=== PATIENT | female | born 1950 | race Caucasian/White ===

== ENCOUNTER → 2017-10-24 | Outpatient (CLI) | payer MEDICARE, OTHER ==
[~2017-10-24] MED LIST: ESTRACE CREAM; FENOFIBRATE145 MG PO; FOLIC ACID1 MG PO; LEVOTHYROXIN PO; LOSARTAN PO; METFORMIN HCL500 M2 PO; METOPROLOL PO; ORENCIA IV; SIMVASTATIN PO; TRAMADOL PO; VITAMIN D PO; [UNRECOGNIZED DRUG - OTHER] PO; [UNRECOGNIZED DRUG - REMARK] PO
--- NOTE | 2017-10-24 16:11 | Diagnostic Imaging Report ---
PROCEDURE: Frontal and lateral views of the chest. COMPARISON: Patients [facility], , CHEST 2 VIEWS, 04/05/2015, 15:28. INDICATIONS: COUGH FINDINGS: Lines/tubes: None. Lungs: The lungs are well inflated and clear. There is no evidence of pneumonia or pulmonary edema. Pleura: There is no pleural effusion or pneumothorax. Heart and mediastinum: The cardiac silhouette is mildly enlarged. Calcification of aortic arch. Bones: No acute bony abnormality. IMPRESSION: 1. Mild cardiomegaly without acute decompensation. Farshad Manrique M.D. Dictated by: Farshad Manrique M.D. on 10/24/2017 at 15:55 Electronically approved by: Farshad Manrique M.D. on 10/24/2017 at 15:55
== END ==
LOC: RAD 15:08
PROVIDERS: ATTEND Specialist
DX: M05.79 Rheumatoid arthritis with rheumatoid factor of multiple sites without organ or systems involvement (principal); Z79.899 Other long term (current) drug therapy
CPT/HCPCS: 71046

== ENCOUNTER → 2020-02-05 | Outpatient (CLI) | payer MEDICARE, OTHER ==
[~2020-02-05] MED LIST changes: +AMLODIPINE BESY10 MG PO; +GLYBURIDE5 MG PO; +IOPAMIDOL 370 MG/ML 200 ML INFUS..BTL INJ ONE; +LOSARTAN-HCTZ1 EAC1 PO; +METHOTREXATE2.5 MG PO; +NEXIUM40 MG PO; +SIMPONI AR50 MG/4 ML IV; +SODIUM CHLORIDE 0.9% 500ML 500 ML ONE; +SODIUM CHLORIDE 0.9% 50ML 50 ML ONE
[2020-02-05 16:16] LABS: CREATININE, SERUM 1.07 mg/dL (0.57-1.11)
--- NOTE | 2020-02-05 21:31 | Diagnostic Imaging Report ---
EXAM: CT Abdomen and Pelvis WITH contrast INDICATION: Abdominal pain, rheumatoid arthritis COMPARISON: None. TECHNIQUE: Abdomen and pelvis were scanned utilizing a multidetector helical scanner from the lung base to the pubic symphysis after administration of IV contrast. Coronal and sagittal reformations were obtained. Routine protocol was performed. Scan was performed when during portal venous phase. IV CONTRAST: 100 mL of Isovue 370 ORAL CONTRAST: None COMPLICATIONS: None RADIATION DOSE: Total DLP: 736 mGy*cm Estimated effective dose: (DLP x 0.015 x size factor) mSv CTDIvol has been reviewed. It is below the limits set by the Radiation Protocol Committee (RPC). Dose modulation, iterative reconstruction, and/or weight based adjustment of the mA/kV was utilized to reduce the radiation dose to as low as reasonably achievable. FINDINGS: LINES and TUBES: None. LOWER THORAX: Triple vessel coronary artery calcific atherosclerosis. Aortic valve calcifications. HEPATOBILIARY: Hypodense liver. Mild hepatomegaly. No focal hepatic lesions. No biliary ductal dilation. GALLBLADDER: Small layering gallstones in the gallbladder fundus. No wall thickening. SPLEEN: No splenomegaly. PANCREAS: No focal masses or ductal dilatation. ADRENALS: No right adrenal nodules. A 1 cm benign lipid rich left adrenal adenoma. KIDNEYS/URETERS: Kidneys enhance symmetrically. No hydronephrosis. No cystic or solid mass lesions. A 2.1 cm right renal inferior pole exophytic nodule with macroscopic fat No stones. GI TRACT: Mild gastric antral wall thickening and mucosal hyperenhancement, there is also proximal duodenal mucosal hyperenhancement. Appendix is normal. PELVIC ORGANS/BLADDER: Hysterectomy. No adnexal masses. Urinary bladder is underdistended but otherwise unremarkable. LYMPH NODES: No lymphadenopathy. VESSELS: Moderate calcific atherosclerosis of the abdominal arteries with possible flow-limiting stenosis of the superior mesenteric artery due to plaque at the arterial origin. PERITONEUM / RETROPERITONEUM: No free air or fluid. BONES: There are degenerative changes in the spine, hips, and pelvis. SOFT TISSUES: Unremarkable. IMPRESSION: 1. Hepatomegaly with hepatic steatosis. 2. Moderate calcific atherosclerosis of the abdominal arteries with possible flow-limiting stenosis of the superior mesenteric artery due to plaque at the arterial origin. 3. Triple vessel coronary artery calcific atherosclerosis. Calcific aortic valve disease. 4. Moderate volume of stool in the colon, correlate for constipation. 5. Cholelithiasis without evidence of obstructive cholecystitis. Signed by: Bob Hernandez DO on 02/05/2020 9:27 PM
== END ==
LOC: CT 15:37
PROVIDERS: ATTEND Internal Medicine Cardiovascular Disease
DX: M05.79 Rheumatoid arthritis with rheumatoid factor of multiple sites without organ or systems involvement (principal); Z79.899 Other long term (current) drug therapy
CPT/HCPCS: 36415; 74177; 82565; 84520; J7040; Q9967

== ENCOUNTER 2020-06-03 12:35 | Emergency (ER) | payer MEDICARE, OTHER ==
[~2020-06-03] VITALS: Ht 165.1 cm; Wt 86.6 kg
[~2020-06-03 12:35] MED LIST changes: -IOPAMIDOL 370 MG/ML 200 ML INFUS..BTL INJ ONE; -SODIUM CHLORIDE 0.9% 500ML 500 ML ONE; -SODIUM CHLORIDE 0.9% 50ML 50 ML ONE
[2020-06-03 13:13] LABS: BASOPHILS % 0.4 % (0.0-1.0); EOSINOPHILS # (AUTO) 0.1 (0.0-0.4); EOSINOPHILS % 1.3 % (0.0-6.0); HEMATOCRIT 33.9 % (34.2-44.1); HEMOGLOBIN 11.5 g/dL (12.0-16.0); LYMPHOCYTES % 21.7 % (18.0-39.1); MEAN CORPUSCULAR HEMOGLOBIN 31.1 pg (28-32); MEAN CORPUSCULAR HGB CONC 33.9 g/dL (31-35); MEAN CORPUSCULAR VOLUME 91.6 fL (81-99); MONOCYTES # (AUTO) 0.7 (0.2-0.8); MONOCYTES % 7.5 % (4.4-11.3); NEUTROPHILS # (AUTO) 6.2 (2.1-6.9); NEUTROPHILS % 68.8 % (38.7-80.0); PLATELET COUNT 271 x10e3/uL (140-360); RED CELL DISTRIBUTION WIDTH 14.5 % (11.7-14.4)
[2020-06-03 13:31] LABS: ANION GAP 16.5 mmol/L (8-16); CREATININE, SERUM 1.09 mg/dL (0.57-1.11); POTASSIUM 3.5 mmol/L (3.5-5.1)
[2020-06-03 13:32] LABS: ALBUMIN/GLOBULIN RATIO 1.3 (0.8-2.0); CALCIUM 9.8 mg/dL (8.4-10.2)
[2020-06-03] MEDS ORDERED: SODIUM CHLORIDE 0.9% 500ML 500 ML IV STA (13:43)
[2020-06-03] MEDS ORDERED: SODIUM CHLORIDE 0.9% 50ML 50 ML ONE (14:00)
[2020-06-03] MEDS ORDERED: IOPAMIDOL 370 MG/ML 200 ML INFUS..BTL INJ ONE (14:00)
[2020-06-03 15:43] VITALS: BP 158/77
== END 2020-06-03 15:44 | disposition home or self-care (01) ==
LOC: ER 13:02
DX: H92.02 Otalgia, left ear (principal); L03.213 Periorbital cellulitis; I10 Essential (primary) hypertension; E11.9 Type 2 diabetes mellitus without complications; E78.5 Hyperlipidemia, unspecified
CPT/HCPCS: 36415; 70450; 70481; 80053; 85025; 99284; J7040; Q9967

== ENCOUNTER 2020-06-16 14:14 | Emergency (ER) | payer MEDICARE, OTHER ==
[~2020-06-16] VITALS: Ht 165.1 cm; Wt 86.6 kg
[2020-06-16] MEDS ORDERED: TRIMETHOPRIM/SULFAMETHOXAZOLE 160-800 MG TAB PO ONE (15:00)
[2020-06-16 16:02] VITALS: BP 151/67
--- NOTE | 2020-06-16 17:45 | Emergency Department Note ---
History of Present Illnes History of Present Illness Chief Complaint: General Medicine Complaints History of Present Illness This is a 70 year old female PATIENT IN FROM HOME WITH COMPLAINTS OF REDNESS AND SWELLING TO RIGHT EYE AND TENDERNESS RIGHT SCALP; STATES WAS SEEN HERE FOR THE SAME THING ON THE OTHER SIDE 06/03/2020 AND WAS DIAGNOSED WITH PERIORBITAL CELLULITIS JUST FINISHED ABX. PATIENT APPEARS IN NO DISTRESS, RESP EVEN AND NONLABORED, APPEARS IN NO DISTRESS, AMBULATORY WITHOUT ASSISTANCE. Historian: Patient Arrival Mode: Car Software Developer Mid Level Required: No Onset (how long ago): day(s) Location: RIGHT FACE/SCALP Quality: PAIN/REDNESS Radiation: Reports non-radiation Severity: mild Onset quality: gradual Timing of current episode: constant Chronicity: new Context: Denies recent illness Relieving factors: none Exacerbating factors: none Associated symptoms: Reports denies other symptoms Past Medical/Family History Physician Review I have reviewed the patient's past medical and family history. Any updates have been documented here. Past Medical History Recent Fever: No Clinical Suspicion of Infectio: No New/Unexplained Change in Ment: No Past Medical History: Hypertension, Diabetes, Hyperlipedemia Other Medical History: RHEUMATOID ARTHRITIS Past Surgical History: Hysterectomy, T&A, Hernia Repair Social History Smoking Cessation: Never Smoker Counseling Performed: No Alcohol Use: None Any Illegal Drug Use: No TB Exposure/Symptoms: No Physically hurt or threatened: No Family History Family history of heart diseas: No Other Any Pre-Existing Lines (PICC,: No Review of Systems Review of Systems Constitutional: Reports no symptoms EENTM: Reports no symptoms Cardiovascular: Reports no symptoms Respiratory: Reports no symptoms Gastrointestinal: Reports no symptoms Genitourinary: Reports no symptoms Musculoskeletal: Reports no symptoms Integumentary: Reports as per HPI Neurological: Reports no symptoms Psychological: Reports no symptoms Endocrine: Reports no symptoms Hematological/Lymphatic: Reports no symptoms Physical Exam Related Data Allergies: Coded Allergies: Penicillins (Verified Allergy, Severe, SWELLING, 06/16/20) diphenhydramine (Verified Allergy, Mild, RASH, ITCHY, WELPS, 06/16/20) ibuprofen (Verified Allergy, Mild, RED RASH, ITCHING, 06/16/20) Triage Vital Signs Vital Signs Date Time Temp Pulse Resp B/P (MAP) Pulse Ox O2 Delivery O2 Flow Rate FiO2 06/16/20 14:41 97.3 65 20 170/69 99 Room Air Vital signs reviewed: Yes Physical Exam CONSTITUTIONAL Constitutional: Present well-developed, Present well-nourished HENT HENT: Present normocephalic, Present atraumatic, Present oropharynx clear/mois t, Present nose normal HENT L/R: Present left ext ear normal, Present right ext ear normal EYES Eyes: Reports PERRL, Reports conjunctivae normal NECK Neck: Present ROM normal PULMONARY Pulmonary: Present effort normal, Present breath sounds normal CARDIOVASCULAR Cardiovascular: Present regular rhythm, Present heart sounds normal, Present capillary refill normal, Present normal rate GASTROINTESTINAL Abdominal: Present soft, Present nontender, Present bowel sounds normal GENITOURINARY Genitourinary: Present exam deferred SKIN Skin: Present warm, Present dry, Present erythema (VERY SMALL AREA ON CHEEK BELOW RIGHT EYE (~1X1.5 CM) WITH MILD ERYTHEMA, TENDERNESS AND ERYTHEMA TO RIGHT SCALP ABOVE EAR) MUSCULOSKELETAL Musculoskeletal: Present ROM normal NEUROLOGICAL Neurological: Present alert, Present oriented x 3, Present no gross motor or sensory deficits PSYCHOLOGICAL Psychological: Present mood/affect normal, Present judgement normal Assessment & Plan Medical Decision Making MDM TX FOR CELLULITIS Reassessment Reassessment DC WITH BACTRIM DS X 10 D BID, F/U PCP Assessment & Plan Final Impression: (1) Cellulitis Depart Disposition: HOME, SELF-CARE Last Vital Signs Date Time Temp Pulse Resp B/P (MAP) Pulse Ox O2 Delivery O2 Flow Rate FiO2 06/16/20 16:02 63 18 100 06/16/20 16:02 97.0 151/67 Room Air Home Meds Reported Medications Glyburide (GLYBURIDE) 5 Mg Tablet, 5 MG PO DAILY, #30 TAB 09/05/19 Esomeprazole Magnesium (NEXIUM) 40 Mg Capsule.dr, 40 MG PO DAILY PROTONIX THERAPEUTIC SUBSTITUTE FOR NEXIUM PER [facility] 09/05/19 Golimumab (Simponi Aria) 50 Mg/4 Ml Vial, IV MONTHLY 09/05/19 Methotrexate Sodium (METHOTREXATE) 2.5 Mg Tablet, 5 MG PO WEEKLY, #30 TAB 09/05/19 Amlodipine Besylate (AMLODIPINE BESYLATE) 10 Mg Tablet, 10 MG PO DAILY, #30 TAB 09/05/19 Losartan/Hydrochlorothiazide (LOSARTAN-HCTZ 100-25 MG TAB) 1 Each Tablet, 1 TAB PO DAILY 09/05/19 Metformin Hcl (METFORMIN HCL ER) 500 Mg Tab.er.24, 1000 MG PO BID, #60 TAB 04/08/15 Fenofibrate Nanocrystallized (FENOFIBRATE) 145 Mg Tablet, 160 MG PO DAILY 04/08/15 Folic Acid (FOLIC ACID) 1 Mg Tablet, 1 MG PO BID, #30 TAB 04/08/15 [Simvastatin] No Conflict Check, 40 MG PO DAILY 04/05/15 [Levothyroxin] No Conflict Check, 50 MCG PO DAILY 04/05/15 [Tramadol] No Conflict Check, 50 MG PO TID 04/05/15 [Metoprolol] No Conflict Check, 25 MG PO HS 04/05/15 Medications in the ED Trimethoprim/ Sulfamethoxazole 1 ea ONCE ONCE PO Last administered on 06/16/20at 16:00; Admin Dose 1 EA; Start 06/16/20 at 15:00; Stop 06/16/20 at 15:01; Status DC SUMAN COLÓN MD Jun 16, 2020 17:45
== END 2020-06-16 16:00 | disposition home or self-care (01) ==
LOC: ER 14:30
DX: L03.211 Cellulitis of face (principal); L03.811 Cellulitis of head [any part, except face]; I10 Essential (primary) hypertension; E11.9 Type 2 diabetes mellitus without complications; E78.5 Hyperlipidemia, unspecified; M06.9 Rheumatoid arthritis, unspecified
CPT/HCPCS: 99283

== ENCOUNTER 2022-06-19 16:23 | Emergency (ER) | payer MEDICARE, OTHER ==
[~2022-06-19] VITALS: Ht 165.1 cm; Wt 81.6 kg
[2022-06-19 17:01] LABS: BASOPHILS # (AUTO) 0.1 (0.0-0.1); BASOPHILS % 0.7 % (0.0-1.0); EOSINOPHILS # (AUTO) 0.4 (0.0-0.4); EOSINOPHILS % 3.7 % (0.0-6.0); HEMATOCRIT 35.3 % (34.2-44.1); LYMPHOCYTES # (AUTO) 2.8 (1.0-3.2); LYMPHOCYTES % 27.5 % (18.0-39.1); MEAN CORPUSCULAR HEMOGLOBIN 32.1 pg (28-32); MEAN CORPUSCULAR VOLUME 94.4 fL (81-99); MONOCYTES # (AUTO) 0.4 (0.2-0.8); MONOCYTES % 4.1 % (4.4-11.3); NEUTROPHILS # (AUTO) 6.5 (2.1-6.9); NEUTROPHILS % 63.6 % (38.7-80.0); PLATELET COUNT 356 x10e3/uL (140-360); RED BLOOD COUNT 3.74 x10e6/uL (3.6-5.1); RED CELL DISTRIBUTION WIDTH 15.4 % (11.7-14.4)
[2022-06-19 17:19] LABS: ALBUMIN 3.8 g/dL (3.5-5.0); ALBUMIN/GLOBULIN RATIO 1.1 (0.8-2.0); ANION GAP 17.5 mmol/L (8-16); CALCIUM 9.7 mg/dL (8.4-10.2); CREATININE, SERUM 1.22 mg/dL (0.57-1.11); POTASSIUM 3.5 mmol/L (3.5-5.1)
[2022-06-19 17:26] LABS: CREATINE KINASE MB 0.8 ng/mL (0-5.0)
[2022-06-19] MEDS ORDERED: LACTATED RINGER'S 1,000 ML INJ ONE (17:45)
[2022-06-19 18:03] LABS: CLARITY,URINE SL CLOUDY (CLEAR); COLOR,URINE YELLOW (YELLOW); KETONES,URINE NEGATIVE (NEGATIVE); LEUKOCYTE ESTERASE ,URINE NEGATIVE (NEGATIVE); NITRITE,URINE NEGATIVE (NEGATIVE); PROTEIN,URINE DIPSTICK TRACE (NEGATIVE); URINE UROBILINOGEN 0.2 mg/dL (0.2 - 1)
[2022-06-19 18:08] LABS: BACTERIA,URINE FEW /HPF; EPITHELIAL CELLS,URINE MODERATE /LPF; WBC,URINE (MAN) 0-5 /HPF (0-5)
[2022-06-19 19:29] VITALS: BP 135/63
== END 2022-06-19 19:31 | disposition home or self-care (01) ==
LOC: EDBD 16:23 → ER 16:31
DX: R10.11 Right upper quadrant pain (principal); K57.30 Diverticulosis of large intestine without perforation or abscess without bleeding; N20.0 Calculus of kidney; K76.0 Fatty (change of) liver, not elsewhere classified; K43.9 Ventral hernia without obstruction or gangrene; R19.7 Diarrhea, unspecified; R11.0 Nausea; E11.65 Type 2 diabetes mellitus with hyperglycemia; I10 Essential (primary) hypertension; E78.5 Hyperlipidemia, unspecified; M06.9 Rheumatoid arthritis, unspecified; R94.31 Abnormal electrocardiogram [ECG] [EKG]
CPT/HCPCS: 36415; 74177; 80053; 81001; 82550; 82553; 84484; 85025; 93005; 99284; J7121